=== PATIENT | female | born 1995 | race Caucasian/White ===

== ENCOUNTER → 2024-02-26 | Outpatient (CLI) | payer BC, SELFPAY ==
--- NOTE | 2024-02-26 | XR_ITS ---
Examination: Lumbar spine 3 views Technique one AP lateral coned lateral lower lumbar spine 3 views Exam date and time: February 26, 2024 1308 hours INDICATIONS: Low back pain radiating down the left leg this week FINDINGS: Satisfactory alignment lumbar vertebral bodies No lumbar fracture No spondylolisthesis No significant lumbar disc narrowing As clinically warranted, if radicular leg pain persists, consider MRI lumbar spine without contrast follow-up IMPRESSION: No lumbar fracture or significant arthritic change
--- NOTE | 2024-02-26 | XR_ITS ---
Examination: Knee, left , 3 views Technique: Knee AP, lateral, oblique 3 views Date and time of exam: February 26, 2024 1305 hours INDICATIONS: Left knee pain and weakness beginning 2 months ago. FINDINGS: Mild narrowing medial joint space No fracture or dislocation Small knee effusion IMPRESSION: Mild narrowing medial joint space
== END | disposition home or self-care (01) ==
PROVIDERS: PCP Family Medicine; Referring Provider Nurse Practitioner Family; Visit Provider Nurse Practitioner Family
DX: M54.50 Low back pain, unspecified (principal); M25.862 Other specified joint disorders, left knee
CPT/HCPCS: 72100; 73562